=== PATIENT | female | born 1940 | race African-American/Black ===

== ENCOUNTER → 2017-09-08 | Outpatient (CLI) | payer OTHER ==
[~2017-09-08] MED LIST: ALDACTONE25 MG PO; AMLODIPINE BESY10 MG PO; APAP500 PO; ASPIR 8181 MG PO; ATORVASTATIN CA40 MG PO; CALCIUM 600 +1 EAC1 PO; CATAPRES-TTS 20.2 M1 TRANSDERM; CATAPRES0.2 MG TRANSDERM; CHLORTHALIDONE25 MG PO; CLONIDINE HCL0.1 MG PO; COLACE100 MG PO; GABAPENTIN 100100 MG PO; HYDROCODONE-AP1 EAC6 PO; IRBESARTAN300 MG PO; KLOR-CON 1010 MEQ PO; LASIX 20 MG TAB20 MG PO; LISINOPRIL20 MG PO; MOBIC15 MG PO; NORCO 5-325 TA1 EACH PO; NORVASC10 MG PO; NORVASC5 MG PO; OXYCODONE HCL 55 MG PO; PLAVIX 75 MG TA75 M1 PO; PREDNISONE 10 M10 MG PO; PRINZIDE 20-251 EACH PO; TOPROL XL25 MG PO; TORADOL 10 MG T10 MG; TRAMADOL 50 MG50 MG PO; TUSSIONEX PENNKI1 ML PO; TYLENOL EXTRA500 MG PO; ULTRAM 50MG TAB50 MG PO; VITAMIN D; VITAMIN D 5050000 I1 PO; VITAMIN D1000 UNI1 PO
--- NOTE | 2017-09-09 08:24 | PAINCON ---
[facility] [address] [place] [address] PAIN MANAGEMENT CONSULTATION Name: ROXANE WILLIS Room: [facility] BOB Newman#: [id number] Admission: 09/08/17 Attend Phys: Magno Bond Discharge: Date of : 42 Report #: [id number] THIS REPORT FOR: //name// CC: Radha Reyes The patient is a delightful 77-year-old female being treated for lumbar radiculopathy secondary to spinal stenosis with ongoing lumbar radicular pain. She has failed multiple conservative techniques including epidural injections over many years. We sought authorization for and received authorization for spinal cord stimulator trial. The patient presents to the pain clinic today for ongoing lumbar radicular pain for spinal cord stimulator trial. PROCEDURE: After written informed consent was obtained including risk of paralysis, epidural bleeding, infection and increased pain, the patient wished to proceed. Intravenous access was established. The patient was given 1 gram of Ancef. He was taken to the fluoroscopy suite and placed in prone position with appropriate abdominal bolstering. After wide surgical prep and drape, skin wheal with Xylocaine was raised. A stab incision with #11 scalpel was made. A 14-gauge epidural Tuohy needle was inserted into the posterior spinous ligament at L1-L2. Stylet was removed and saline filled glass syringe was connected. With continuous plunger pressure in AP and lateral fluoroscopy, the needle was advanced into the epidural space with good loss of resistance. No blood or CSF was aspirated. I attempted to deploy a single spinal cord stimulator lead, but was unable to get past about one vertebral body. We elected to abort this level, the needle and lead were removed. Second Xylocaine wheal was raised approximately one vertebral space lower. Again from right paramedian approach, another small stab incision with a #11 scalpel was made. A 6-inch 14-gauge epidural Tuohy needle was then placed at a much steeper angle again entering the posterior spinous ligament at L1-L2. Again the lead was removed and a saline filled glass syringe was attached. Under intermittent fluoroscopy with continuous plunger pressure, this needle was again easily advanced into the epidural space with good loss of resistance. The lead was again deployed this time easily advancing in the midline on AP and lateral projections to the T7-T8 interspace. A second lead was attempted from the left paramedian approach, again a skin wheal with Xylocaine was raised over the L1-L2 interspace left to midline. A #11 scalpel was used to make a stab incision. A 14-gauge epidural Tuohy needle was placed to enter the posterior spinous process at L1-L2. Stylet was removed and a saline filled glass syringe was attached. With continuous plunger pressure and biplanar fluoroscopy, this needle was attempted to advance into the epidural space. Unable to achieve a good loss of resistance with excellent placement of the initial lead, I elected to abort [place] [address] PAIN MANAGEMENT CONSULTATION Name: ROXANE WILLIS MELISSA Weathers Room: ANJELICA Newman#: [id number] Admission: 09/08/17 Attend Phys: Magno Bond Discharge: Date of : 42 Report #: [id number] We informed the patient. The stylet and needle were withdrawn while observing the tip of the initial lead. It remained in place midline at the T7-T8 border. The lead was then secured using [place] and Steri-Strips. Wide bolster dressing was applied. The patient was allowed to ambulate to the recovery room. We reviewed stimulatory patterns with the patient. She has contact information for the pain clinic physician hr consultant at [facility] ([phone]). [facility] throughout the [facility] and will follow up with me in one week for lead evaluation and removal. Discharged in good and stable condition. <ELECTRONICALLY SIGNED> By: Kingsley Reyes DO 09/09/17 0824 [id number] [id number] Reyes DO /ruddy
== END | disposition home or self-care (01) ==
LOC: M.PC 01:29
DX: Z46.2 Encounter for fitting and adjustment of other devices related to nervous system and special senses (principal); M54.16 Radiculopathy, lumbar region; M48.061 Spinal stenosis, lumbar region without neurogenic claudication; I10 Essential (primary) hypertension; Z79.899 Other long term (current) drug therapy; Z79.82 Long term (current) use of aspirin; Z91.040 Latex allergy status; Z88.6 Allergy status to analgesic agent; Z88.8 Allergy status to other drugs, medicaments and biological substances; Z79.891 Long term (current) use of opiate analgesic

== ENCOUNTER → 2017-09-15 | Outpatient (CLI) | payer OTHER ==
--- NOTE | 2017-09-20 07:21 | PAINCON ---
[facility] [address] [place] [address] PAIN MANAGEMENT CONSULTATION Name: ROXANE WILLIS Room: [facility] BOB Newman#: [id number] Admission: 09/15/17 Attend Phys: Magno Bond Discharge: Date of : 42 Report #: [id number] THIS REPORT FOR: //name// CC: MARISA Reyes HISTORY OF PRESENT ILLNESS: The patient is a delightful 77-year-old female, long treated for symptomatic lumbar radiculopathy secondary to spinal stenosis, neuropathic pain component. She was last seen in pain clinic last week. We trialled a high frequency spinal cord stimulator. A single lead was placed with the tip over the T7 vertebral body. She returns to Pain Clinic today for evaluation of the spinal cord stimulator trial. She was taken to the fluoroscopy suite. The lead is unchanged. It has been the posterior aspect of the epidural space. Again, the tip is right at the mid body of T7. Unfortunately, the patient notes really no significant improvement of baseline pain. She is actually frustrated and little tearful today regarding this. I assured her that if she did not get good relief with this, we will help pursue whatever we can to help keep her more comfortable. She notes subjective pain continues to be problematic with radicular component of pain down the right leg. PHYSICAL EXAMINATION: VITAL SIGNS: Shows vital signs stable. MUSCULOSKELETAL: Rises from chair using armrest, modestly antalgic gait, positive straight leg raise on the right and slight decrease in strength at the side as well. 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 I think she will require surgical decompression. She had had one surgical consult and she was concerned about suggestion for fairly extensive decompression and fusion. I gave her contact information for 3 neurosurgeons, Kendell Flores M.D. at [facility]; Henry Funes M.D. at [place] and Nadeem Shultz M.D. et. al. ([facility]) operating primarily at [facility]. I told her any of these surgeons would be quite competent and I would be very confident with her having surgery by anyone of the surgeons listed. I suggested she follow up with them. She understands she will need to picking supervisor [facility]. Today, the spinal cord stimulator lead was removed. Tip was intact. Insertion area looks good. Dressing was applied. Follow up p.r.n. <ELECTRONICALLY SIGNED> By: Kingsley Reyes DO 09/20/17 0721 [id number] Reyes DO /nt
== END ==
LOC: M.PC 01:31
DX: M48.061 Spinal stenosis, lumbar region without neurogenic claudication (principal); M54.16 Radiculopathy, lumbar region

== ENCOUNTER → 2017-09-22 | Outpatient (CLI) | payer OTHER ==
--- NOTE | 2017-09-27 07:21 | PAINCON ---
[facility] [address] [place] [address] PAIN MANAGEMENT CONSULTATION Name: ROXANE WILLIS Room: [facility] BOB Newman#: [id number] Admission: 09/22/17 Attend Phys: Magno Bond Discharge: Date of : 42 Report #: [id number] THIS REPORT FOR: //name// CC: Radha Reyes DATE OF SERVICE: 09/22/2017 The patient is a delightful 77-year-old female being treated for lumbar radiculopathy secondary to spinal stenosis. She has failed spinal cord stimulator trial (catheter was removed on 09/15/2017). I referred the patient to Dr. Henry Funes at [facility] for consideration for decompressive laminectomy. We also sought authorization for epidural injection under fluoroscopy today, which was accomplished. The patient presents to Pain Clinic today for said injection. Ongoing pain that she rates 5/10 low back, radiating to both legs with lower extremity strength diminished symmetrically. Positive straight leg raise bilaterally. She does have significant neurogenic claudication and central spinal stenosis, fairly dramatic at multiple levels down to 5 mm at L4-L5 and 6.5 mm at L3-L4. ASSESSMENT: Symptomatic lumbar radiculopathy secondary to spinal stenosis. RECOMMENDATION: Epidural injection under fluoroscopy today, Dr. Henry Funes for surgical consultation. We have to see the patient on an as needed basis. PROCEDURE: Lumbar epidural injection under fluoroscopy. PROCEDURE NOTE: After both written and informed consent to include risk of spinal cord damage, increased pain, weakness and dural puncture, the patient was taken to the fluoroscopy suite, placed in the prone position. After sterile prep and drape, a skin wheal with lidocaine was raised. A 22-gauge epidural Tuohy needle was inserted in the midline at L3-L4 with good loss to resistance. Negative aspiration for cerebrospinal fluid or blood was noted. Then 1 mL of Omnipaque under biplanar fluoroscopy showed good spread within the epidural space. This was followed with 80 mg of triamcinolone plus 1 mL of 1.5% preservative-free Xylocaine, 0.5 mL Xylocaine was then injected to flush the needle; it was removed. The patient was monitored for an appropriate period of time and discharged in good and stable condition. <ELECTRONICALLY SIGNED> By: Kingsley Reyes DO 09/27/17 0721 [id number] Hospitalwen Reyes DO /nt
== END | disposition home or self-care (01) ==
LOC: M.PC 02:51
DX: M48.061 Spinal stenosis, lumbar region without neurogenic claudication (principal); I10 Essential (primary) hypertension; Z98.890 Other specified postprocedural states; Z79.899 Other long term (current) drug therapy; Z88.6 Allergy status to analgesic agent; Z91.040 Latex allergy status; Z88.8 Allergy status to other drugs, medicaments and biological substances; Z79.82 Long term (current) use of aspirin; Z79.891 Long term (current) use of opiate analgesic

== ENCOUNTER → 2018-11-21 | Outpatient (CLI) | payer OTHER | LOC: M.RAD 12:17 | DX: J98.11 Atelectasis (principal) ==

== ENCOUNTER → 2021-05-27 | Outpatient (CLI) | payer OTHER ==
[~2021-05-27] MED LIST changes: -ATORVASTATIN CA40 MG PO; +CARVEDILOL PO; +FUROSEMIDE 20 M20 MG PO; +LIPITOR40 MG PO
== END ==
LOC: M.PC 09:43
PROVIDERS: ATTEND Anesthesiology Pain Medicine
DX: I12.9 Hypertensive chronic kidney disease with stage 1 through stage 4 chronic kidney disease, or unspecified chronic kidney disease (principal); N18.4 Chronic kidney disease, stage 4 (severe); M48.061 Spinal stenosis, lumbar region without neurogenic claudication; M54.16 Radiculopathy, lumbar region; M19.90 Unspecified osteoarthritis, unspecified site; Z79.899 Other long term (current) drug therapy; Z79.82 Long term (current) use of aspirin; Z88.8 Allergy status to other drugs, medicaments and biological substances; Z90.710 Acquired absence of both cervix and uterus

== ENCOUNTER → 2021-06-05 | Outpatient (CLI) | payer OTHER | END | disposition home or self-care (01) | LOC: M.PC 10:47 | PROVIDERS: ATTEND Anesthesiology Pain Medicine | DX: M54.16 Radiculopathy, lumbar region (principal); M48.061 Spinal stenosis, lumbar region without neurogenic claudication; G89.29 Other chronic pain; I12.9 Hypertensive chronic kidney disease with stage 1 through stage 4 chronic kidney disease, or unspecified chronic kidney disease; N18.4 Chronic kidney disease, stage 4 (severe); M19.90 Unspecified osteoarthritis, unspecified site; Z98.890 Other specified postprocedural states; Z79.899 Other long term (current) drug therapy; Z98.41 Cataract extraction status, right eye; Z98.42 Cataract extraction status, left eye; Z87.891 Personal history of nicotine dependence; Z90.711 Acquired absence of uterus with remaining cervical stump; Z88.6 Allergy status to analgesic agent; Z91.040 Latex allergy status; Z88.8 Allergy status to other drugs, medicaments and biological substances ==

== ENCOUNTER → 2021-09-16 | Outpatient (CLI) | payer OTHER | LOC: M.PC 11:48 | PROVIDERS: ATTEND Anesthesiology Pain Medicine | DX: M47.26 Other spondylosis with radiculopathy, lumbar region (principal); M47.27 Other spondylosis with radiculopathy, lumbosacral region; M48.061 Spinal stenosis, lumbar region without neurogenic claudication; M48.07 Spinal stenosis, lumbosacral region; M19.90 Unspecified osteoarthritis, unspecified site; I12.9 Hypertensive chronic kidney disease with stage 1 through stage 4 chronic kidney disease, or unspecified chronic kidney disease; N18.4 Chronic kidney disease, stage 4 (severe); Z88.8 Allergy status to other drugs, medicaments and biological substances; Z79.899 Other long term (current) drug therapy ==

== ENCOUNTER → 2021-09-29 | Outpatient (CLI) | payer OTHER | LOC: M.RAD 14:20 | PROVIDERS: ATTEND Nurse Practitioner Primary Care | DX: M16.11 Unilateral primary osteoarthritis, right hip (principal) ==